=== PATIENT | female | born 1980 | race Caucasian/White ===

== ENCOUNTER 2016-12-21 11:31 | Outpatient (CLI) | payer SELFPAY ==
--- NOTE | 2016-12-21 12:16 | Non Stress Test Report ---
Non Stress Test Datetime Report Generated by CPN: 12/21/2016 12:15 DEMOGRAPHIC EGA NST: 38.5 INDICATION Indication for Study: Ordered by Provider MONITORING Monitor Explained: Monitor Explained; Test Explained; Patient Verbalized Understanding Time on Monitor: 12/21/2016 11:50 Time off Monitor: 12/21/2016 12:13 NST Duration: 23 NST INTERVENTIONS NST Interventions: PO Hydration; Reposition Patient Physician Notified NST: Dr. Barber BABY A: [id number] BABY A Movement : Present Contraction Frequency : non FHR Baseline : 145 Accelerations : 15X15 Decelerations : None Variability : Moderate 6-25bpm NST Review: Meets Criteria for Reactive NST NST Review and Verified By : KATIE Pepper Results: Reactive NST REPORT Report Trigger: Send Report
== END 2016-12-21 12:20 | disposition home or self-care (01) ==
LOC: LC 11:31
PROVIDERS: ATTEND Obstetrics & Gynecology
PROC: 4A1HXCZ Monitoring of Products of Conception, Cardiac Rate, External Approach (ICD-10-PCS; principal; 2016-12-21)
DX: O09.523 Supervision of elderly multigravida, third trimester (principal); Z3A.38 38 weeks gestation of pregnancy
CPT/HCPCS: 59025

== ENCOUNTER 2017-01-01 20:13 | Inpatient (IN) | payer OTHER ==
[2017-01-01] MEDS ORDERED: RINGERS SOLUTION,LACTATED 300 ML IV ONE (20:19)
[2017-01-01] MEDS ORDERED: OXYTOCIN/NORMAL SALINE 20 UNIT/1,000 ML RTUINJ IV PRN (20:19)
[2017-01-01] MEDS ORDERED: ACETAMINOPHEN 325 MG TABLET PO PRN (20:19)
[2017-01-01] MEDS ORDERED: DINOPROSTONE 10 MG VAGINAL INSERT.SR PV ONE (20:19)
[2017-01-01 21:01] LABS: ABSOLUTE EOSINOPHILS # (AUTO) 0.1 10^3/uL (0.0-0.6); ABSOLUTE LYMPHOCYTES (AUTO) 2.8 10^3/uL (0.5-4.7); ABSOLUTE NEUT (AUTO) 9.4 10^3/uL (1.7-8.2); BASOPHILS % (AUTO) 0.1 % (0-2); EOSINOPHILS % (AUTO) 0.8 % (0-6); HEMATOCRIT 37.1 % (36.0-47.0); HEMOGLOBIN 12.4 g/dL (12.0-15.5); HGB HCT DIFFERENCE 0.1; LYMPHOCYTES % (AUTO) 21.3 % (13-45); MEAN CORPUSCULAR HEMOGLOBIN 27.9 pg (27.0-33.4); MEAN CORPUSCULAR HGB CONC 33.4 g/dL (32.0-36.0); MEAN CORPUSCULAR VOLUME 84 fl (80-97); MONOCYTES % (AUTO) 7.3 % (3-13); RED BLOOD COUNT 4.44 10^6/uL (3.72-5.28); RED CELL DISTRIBUTION WIDTH 14.2 % (11.5-14.0); SEGMENTED NEUTROPHILS % (AUTO) 70.5 % (42-78); WHITE BLOOD COUNT 13.3 10^3/uL (4.0-10.5)
[2017-01-01 21:01] LABS: APPEARANCE,URINE CLEAR; BILIRUBIN,URINE NEGATIVE (NEGATIVE); GLUCOSE, URINE NEGATIVE (NEGATIVE); KETONES,URINE NEGATIVE (NEGATIVE); LEUKOCYTE ESTERASE,URINE NEGATIVE (NEGATIVE); NITRITE,URINE NEGATIVE (NEGATIVE); PROTEIN,URINE NEGATIVE (NEGATIVE); URINE SPECIFIC GRAVITY 1.002; UROBILINOGEN,URINE NEGATIVE mg/dL (<2.0)
[2017-01-01] MEDS ORDERED: DINOPROSTONE 10 MG VAGINAL INSERT.SR ONE (21:17)
[2017-01-01] MEDS ORDERED: ZOLPIDEM TARTRATE 5 MG TABLET ONE (21:18)
[2017-01-01 21:20] LABS: URINE BARBITURATES SCREEN NEGATIVE; URINE METHADONE SCREEN NEGATIVE; URINE OPIATES LOW NEGATIVE; URINE PHENCYCLIDINE SCREEN NEGATIVE
[2017-01-01] MEDS: ZOLPIDEM TARTRATE 5 MG TABLET PO PRN (21:28)
[2017-01-01] MEDS: RINGERS SOLUTION,LACTATED 1,000 ML IV PRN (21:29)
[2017-01-01] MEDS ORDERED: MAG HYDROX/AL HYDROX/SIMETH SUSP 30 ML UDCUP ONE (22:38)
[2017-01-01] MEDS ORDERED: MAG HYDROX/AL HYDROX/SIMETH SUSP 30 ML UDCUP PO ONE (22:41)
[2017-01-01] MEDS: MAG HYDROX/AL HYDROX/SIMETH SUSP 30 ML UDCUP PO PRN (22:44)
[2017-01-02] MEDS: RINGERS SOLUTION,LACTATED 1,000 ML IV PRN (04:22)
--- NOTE | 2017-01-02 10:46 | L&D Progress Notes ---
PROGRESS NOTES Datetime Report Generated by CPN: 01/02/2017 10:46 PROGRESS NOTE Impression: Reassuring Heart Rate Procedures: Sterile Vag Exam Plan: Induction Plan Other: start pit Informed Consent Obtained: Vaginal Delivery Vital Signs : Reviewed Comment: SVE, as above Pitocin VAGINAL EXAM Dilatation: 1 Effacement: 60 Station: -3 MEMBRANES Pooling: Negative Membranes: Intact FETUS A FHR - Baseline: 150 Variability: Moderate 6-25bpm Accelerations: 15X15 Decelerations: None FHR Category: Category I : 40.3 Estimated Weight (gm): 3500 Presentation: Vertex SIGNATURE SIGNATURE: [id number];[id number] SIGNATURE: [id number] Assignment: Hailey Rubin MD Signature: with User ID: [email or web address] : with User ID: Maria Del Rosario
[2017-01-02] MEDS ORDERED: OXYTOCIN/NORMAL SALINE 20 UNIT/1,000 ML RTUINJ ONE (10:59)
[2017-01-02] MEDS ORDERED: MAG HYDROX/AL HYDROX/SIMETH SUSP 30 ML UDCUP ONE ×2 (13:55→21:33)
[2017-01-02] MEDS: MAG HYDROX/AL HYDROX/SIMETH SUSP 30 ML UDCUP PO PRN (13:56)
--- NOTE | 2017-01-02 16:44 | L&D Progress Notes ---
PROGRESS NOTES Datetime Report Generated by CPN: 01/02/2017 16:43 PROGRESS NOTE Impression: Reassuring Heart Rate Procedures: Sterile Vag Exam Plan: Cervical Ripening Vital Signs : Reviewed Comment: Discussed with pt plan of care Will shut off pitocin for the night pt may eat dinner, shower Cervidil over night Plan for restart pitocin in am VAGINAL EXAM Dilatation: 1 Effacement: 60 Station: -3 Contractions: 2-5 MEMBRANES Membranes: Intact FETUS A FHR - Baseline: 155 Monitoring: External US Variability: Moderate 6-25bpm Decelerations: None FHR Category: Category I FETUS C SIGNATURE: [id number];[id number] Assignment: Hailey Rubin MD Signature: with User ID: [email or web address] : with User ID: [email or web address]
[2017-01-02] MEDS ORDERED: DINOPROSTONE 10 MG VAGINAL INSERT.SR PV ONE (19:09)
[2017-01-02] MEDS ORDERED: DINOPROSTONE 10 MG VAGINAL INSERT.SR ONE (19:51)
[2017-01-02] MEDS ORDERED: ZOLPIDEM TARTRATE 5 MG TABLET ONE (21:29)
[2017-01-02] MEDS ORDERED: MAG HYDROX/AL HYDROX/SIMETH SUSP 30 ML UDCUP PO ONE (21:34)
[2017-01-02] MEDS: ZOLPIDEM TARTRATE 5 MG TABLET PO PRN (21:42)
[2017-01-03] MEDS ORDERED: MAG HYDROX/AL HYDROX/SIMETH SUSP 30 ML UDCUP ONE (07:15)
[2017-01-03] MEDS ORDERED: ACETAMINOPHEN 325 MG TABLET ONE (08:37)
--- NOTE | 2017-01-03 11:45 | L&D Progress Notes ---
PROGRESS NOTES Datetime Report Generated by CPN: 01/03/2017 11:45 PROGRESS NOTE Impression: Reassuring Heart Rate Plan: Continue Present Management; Induction Informed Consent Obtained: Vaginal Delivery Vital Signs : Reviewed; Within Normal Limits Comment: Ireg uc's, Cat 1 strip, does not want a epidural, will arom when vtx descends FETUS A Decelerations: None FETUS C SIGNATURE: [id number];[id number] Assignment: Chapin Ang DO Signature: with User ID: [email or web address] : with User ID: [email or web address]
--- NOTE | 2017-01-03 13:24 | L&D Progress Notes ---
PROGRESS NOTES Datetime Report Generated by CPN: 01/03/2017 13:24 PROGRESS NOTE Comment: walking in halls, feeling uc's but not painful. Irreg uc's, Cat 1 strip FETUS C SIGNATURE: [id number];10,[id number] Assignment: Chapin Ang DO Signature: with User ID: [email or web address] : with User ID: [email or web address]
--- NOTE | 2017-01-03 14:57 | L&D Progress Notes ---
PROGRESS NOTES Datetime Report Generated by CPN: 01/03/2017 14:57 PROGRESS NOTE Impression: Reassuring Heart Rate Procedures: Sterile Vag Exam Plan: Induction Vital Signs : Reviewed; Within Normal Limits Comment: VE 1/soft/vtx by sono, out of pelvis, discussed options with pt and FOB, re: going home and coming back in labor or next Brad, increase risk of C/S since no change in cervix and descent. DW Dr. Ang, pt would like to continue with Pitocin today and possible cytotec tonight FETUS A Monitoring: External US Variability: Moderate 6-25bpm FETUS C SIGNATURE: [id number];[id number] Assignment: Chapin Ang DO Signature: with User ID: [email or web address] : with User ID: [email or web address]
--- NOTE | 2017-01-10 09:43 | Admission Physical ---
Datetime Report Generated by CPN: 01/10/2017 09:43 CURRENT ADMISSION Chief Complaint: Scheduled Induction of Labor Indication for Induction: Post Dates Indication for Induction: Term, Intrauterine ; Induction of Labor Admit Plan: Admit to Unit; Initiate Labor Induction Protocol ALLERGIES Medication Allergies: Yes Medication Allergies: amoxicillin (01/01/2017) Medication Allergies: No Known Allergies (12/21/2016) Medication Allergies: amoxicillin Medication Allergies: No Known Allergies (01/29/2014) Latex: No Latex Allergies Food Allergies: None known OBSTETRICAL HISTORY : 2 Para: 1 SAB: 0 IAB: 0 Ectopic: 0 Livin Cesareans: 0 VBACs: 0 Multiple Births: 0 Gestational Diabetes: No Rh Sensitization: No Incompetent Cervix: No CLARE: No Infertility: No ART Treatment: No Uterine Anomaly: No IUGR: No Hx Previous C/S: No Macrosomia: No Hx Loss/Stillborn: No PIH: No Hx : No Placenta Previa/Abruption: No Depression/PP Depression: Yes PTL/PROM: No Post Hemorrhage: No Current Procedures: Ultrasound; NST Obstetrical History Comments: G1-41 vaginal boy 8lbs 13oz G2-current SEE RECORDS Alcohol: No Marijuana : No Cocaine: No Other Illicit Drugs: No Cigarettes: Former Smoker. 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 Surgery: No Heart Disease: No Hosp/Surgery: Yes Autoimmune Disorder: No Anesthetic Complications: No Kidney Disease: No Abnormal Pap Smear: Yes Neuro/Epilepsy: No Psychiatric Disorders: No Other Medical Diseases: No Hepatitis/Liver Disease: No Significant Family History: No Varicosities/Phlebitis: No Trauma/Violence : No Thyroid Dysfunction: No Medical History Comments: ankle sx 2009 INFECTIOUS HISTORY Gonorrhea: No Genital Herpes: No Chlamydia: No Tuberculosis: No Syphilis: No Hepatitis: No HIV/AIDS Exposure: No Rash or Viral Illness: No HPV: Yes PHYSICAL EXAM General: Normal HEENT: Normal Neurologic: Normal Thyroid: Normal Heart: Normal Lungs: Normal Breast: Normal Back: Normal Abdomen: Normal Genitourinary Exam: Normal Extremities: Normal DTRs: Normal Pelvic Type: Adequate Vital Signs: Reviewed VAGINAL EXAM Dilatation: 1 MEMBRANES Pooling: Negative Membranes: Intact FETUS A FHR- Baseline: 130 Variability: Moderate 6-25bpm Accelerations: 15X15 Decelerations: None FHR Category: Category I Estimated Weight (gm): 3500 Presentation: Vertex PLANS FOR LABOR AND DELIVERY Labor and Delivery: None Pain Management: Natural Feeding Preference: Breast Benefit of Breast Feed Discussed: Yes Circumcision: No
== END 2017-01-03 15:40 | disposition home or self-care (01) | DRG 782 ==
LOC: LR 20:13
PROVIDERS: ADMIT Obstetrics & Gynecology; ATTEND Obstetrics & Gynecology
DX: O48.0 Post-term pregnancy (principal); O36.0930 Maternal care for other rhesus isoimmunization, third trimester, not applicable or unspecified; O61.0 Failed medical induction of labor; O99.213 Obesity complicating pregnancy, third trimester; E66.9 Obesity, unspecified; O09.523 Supervision of elderly multigravida, third trimester; Z3A.40 40 weeks gestation of pregnancy; Z68.30 Body mass index [BMI] 30.0-30.9, adult
CPT/HCPCS: 36415; 80307; 81005; 85025; 86592; 86850; 86900; 86901; J2590; J3490

== ENCOUNTER 2017-01-07 18:01 | Inpatient (IN) | payer OTHER ==
[2017-01-07] MEDS ORDERED: RINGERS SOLUTION,LACTATED 1,000 ML IV PRN (18:25)
[2017-01-07] MEDS ORDERED: RINGERS SOLUTION,LACTATED 300 ML IV ONE (18:25)
[2017-01-07 19:17] LABS: APPEARANCE,URINE SLIGHTLY-CLOUDY; BILIRUBIN,URINE NEGATIVE (NEGATIVE); GLUCOSE, URINE NEGATIVE (NEGATIVE); KETONES,URINE NEGATIVE (NEGATIVE); LEUKOCYTE ESTERASE,URINE TRACE (NEGATIVE); NITRITE,URINE NEGATIVE (NEGATIVE); PROTEIN,URINE NEGATIVE (NEGATIVE); URINE SPECIFIC GRAVITY 1.011; UROBILINOGEN,URINE NEGATIVE mg/dL (<2.0)
[2017-01-07] MEDS ORDERED: MISOPROSTOL 0.1 MG TABLET PO ONE (19:23)
[2017-01-07] MEDS ORDERED: MISOPROSTOL 0.1 MG TABLET PV ONE (19:25)
[2017-01-07 19:28] LABS: ABSOLUTE EOSINOPHILS # (AUTO) 0.1 10^3/uL (0.0-0.6); ABSOLUTE LYMPHOCYTES (AUTO) 2.6 10^3/uL (0.5-4.7); ABSOLUTE MONOCYTES (AUTO) 0.8 10^3/uL (0.1-1.4); ABSOLUTE NEUT (AUTO) 8.2 10^3/uL (1.7-8.2); BASOPHILS % (AUTO) 0.2 % (0-2); EOSINOPHILS % (AUTO) 0.9 % (0-6); HEMATOCRIT 38.6 % (36.0-47.0); HEMOGLOBIN 12.9 g/dL (12.0-15.5); HGB HCT DIFFERENCE 0.1; LYMPHOCYTES % (AUTO) 22.5 % (13-45); MEAN CORPUSCULAR HGB CONC 33.4 g/dL (32.0-36.0); MEAN CORPUSCULAR VOLUME 84 fl (80-97); MONOCYTES % (AUTO) 6.5 % (3-13); RED CELL DISTRIBUTION WIDTH 14.4 % (11.5-14.0); SEGMENTED NEUTROPHILS % (AUTO) 69.9 % (42-78); WHITE BLOOD COUNT 11.8 10^3/uL (4.0-10.5)
[2017-01-07 19:47] LABS: URINE BARBITURATES SCREEN NEGATIVE; URINE METHADONE SCREEN NEGATIVE; URINE OPIATES LOW NEGATIVE; URINE PHENCYCLIDINE SCREEN NEGATIVE
[2017-01-07] MEDS ORDERED: MISOPROSTOL 0.1 MG TABLET ONE (19:50)
[2017-01-07] MEDS ORDERED: ZOLPIDEM TARTRATE 5 MG TABLET PO ONE (21:30)
[2017-01-07] MEDS ORDERED: ZOLPIDEM TARTRATE 5 MG TABLET ONE (21:54)
[2017-01-08] MEDS ORDERED: MISOPROSTOL 0.1 MG TABLET ONE ×2 (00:37→04:37)
[2017-01-08] MEDS ORDERED: MISOPROSTOL 0.1 MG TABLET PV SCH (00:45)
[2017-01-08] MEDS ORDERED: OXYTOCIN/NORMAL SALINE 20 UNIT/1,000 ML RTUINJ ONE ×2 (09:35→11:11)
--- NOTE | 2017-01-08 09:48 | L&D Progress Notes ---
PROGRESS NOTES Datetime Report Generated by CPN: 01/08/2017 09:48 PROGRESS NOTE Impression: Reassuring Heart Rate Plan: Continue Present Management; Induction Vital Signs : Reviewed; Within Normal Limits Comment: Pt asking for butcher bulb, feeling uc's, irreg uc's, cat [address] Rubin coming in to assess for butcher bulb VAGINAL EXAM Dilatation: 1 Effacement: 0 Station: -3 MEMBRANES Pooling: Negative Membranes: Intact FETUS A Monitoring: External US : 41.1 Estimated Weight (gm): 3500 Presentation: Vertex SIGNATURE SIGNATURE: [id number];[id number] Assignment: Hailey Rubin MD Signature: with User ID: [email or web address] : with User ID: [email or web address]
[2017-01-08] MEDS ORDERED: ONDANSETRON HCL INJ/PF 4 MG/2 ML SDV IV ONE (10:28)
[2017-01-08] MEDS ORDERED: ONDANSETRON HCL INJ/PF 4 MG/2 ML SDV ONE (10:29)
[2017-01-08] MEDS ORDERED: LIDOCAINE 1% INJ-PF (10 MG/ML) 30 ML SDV ONE (11:11)
[2017-01-08] MEDS ORDERED: MISOPROSTOL 0.2 MG TABLET ONE (11:11)
[2017-01-08] MEDS ORDERED: EPHEDRINE SULFATE INJ 50 MG/1 ML AMPULE ONE (11:11)
[2017-01-08] MEDS ORDERED: FENTANYL/BUPIVACAINE/NS/PF 200 MCG/100 ML RTUINJ EPI ONE (11:11)
[2017-01-08] MEDS ORDERED: BUPIVACAINE HCL 0.25 % INJ/PF (2.5 MG/1 ML) 30 ML VIAL ONE (11:12)
--- NOTE | 2017-01-08 12:04 | L&D Progress Notes ---
PROGRESS NOTES Datetime Report Generated by CPN: 01/08/2017 12:03 PROGRESS NOTE Procedures: Sterile Vag Exam Plan: Induction Informed Consent Obtained: Vaginal Delivery Vital Signs : Reviewed Comment: Received epidural, feeling a little better, VE 6/100/0, + show, uc's q 2-3 x 60 sec.Cat 1 strip anticipate FETUS A FHR - Baseline: 140 Monitoring: External US Decelerations: Early FETUS C SIGNATURE: [id number];[id number] Assignment: Hailey Rubin MD Signature: with User ID: [email or web address] : with User ID: [email or web address]
--- NOTE | 2017-01-08 12:21 | L&D Progress Notes ---
PROGRESS NOTES Datetime Report Generated by CPN: 01/08/2017 12:21 PROGRESS NOTE Comment: VE 8/100/vtx/0. FSE applied, Cat 1 strip FETUS C SIGNATURE: [id number];[id number] Assignment: Hailey Rubin MD Signature: with User ID: [email or web address] : with User ID: [email or web address]
[2017-01-08] MEDS ORDERED: PSEUDOEPHEDRINE HCL 30 MG TABLET PO PRN (13:37)
[2017-01-08] MEDS ORDERED: ACETAMINOPHEN 650 MG SUPP.RECT PR PRN (13:37)
[2017-01-08] MEDS ORDERED: OXYTOCIN/NORMAL SALINE 20 UNIT/1,000 ML RTUINJ IV PRN (13:37)
[2017-01-08] MEDS ORDERED: PROMETHAZINE HCL INJ 25 MG/1 ML VIAL IV PRN (13:37)
[2017-01-08] MEDS ORDERED: PROMETHAZINE HCL 25 MG SUPP.RECT PR PRN (13:37)
[2017-01-08] MEDS ORDERED: MAGNESIUM HYDROXIDE SUSP 30 ML UDCUP PO PRN (13:37)
[2017-01-08] MEDS ORDERED: DIPH/PERTUSS(ACELL)/TETANUS VAC/PF 0.5 ML SYR (>=10YO) IM PRN (13:37)
[2017-01-08] MEDS ORDERED: DIPHENHYDRAMINE HCL 25 MG CAPSULE PO PRN (13:37)
[2017-01-08] MEDS ORDERED: MEASLES,MUMPS&RUBELLA VACC/PF 0.5 ML VIAL SUBCUT PRN (13:37)
[2017-01-08] MEDS ORDERED: ZOLPIDEM TARTRATE 5 MG TABLET PO PRN (13:37)
[2017-01-08] MEDS ORDERED: MISOPROSTOL 0.2 MG TABLET PR PRN (13:37)
[2017-01-08] MEDS ORDERED: ACETAMINOPHEN WITH CODEINE #3 TABLET PO PRN (13:37)
[2017-01-08] MEDS ORDERED: GLYCERIN/WITCH HAZEL LEAF 1 EACH MED..PAD TP PRN (13:37)
[2017-01-08] MEDS ORDERED: BENZOCAINE/MENTHOL AEROSOL SPRAY 56 ML TOP PRN (13:37)
[2017-01-08] MEDS ORDERED: NA PHOS,M-B/NA PHOS,DI-BA (ADULT) 133 ML ENEMA PR PRN (13:37)
[2017-01-08] MEDS ORDERED: PROMETHAZINE HCL 25 MG TABLET PO PRN (13:37)
[2017-01-08] MEDS ORDERED: DIBUCAINE 1% OINTMENT 28 GM TP PRN (13:37)
[2017-01-08] MEDS ORDERED: IBUPROFEN 800 MG TABLET ONE (14:24)
[2017-01-08] MEDS: IBUPROFEN 800 MG TABLET PO SCH ×2 (14:24→21:10)
--- NOTE | 2017-01-08 14:53 | Delivery Summary ---
Del Sum A-C Datetime Report Generated by CPN: 01/08/2017 14:53 DELIVERY PERSONNEL DELIVERY PERSONNEL: [id number] Delivery Doctor:: Helga Jennings CNM Labor and Delivery Nurse:: Denae Soria RNtax accounting assistant Nurse:: Brooklyn Thomas RN Nursery Nurse:: Mohan Kelley RN Student Observers:: Faisal Greenfield/KENJI: Rina Sousa CST Additional Personnel: : Sanjay Wyatt MATERNAL INFORMATION Delivery Anesthesia: Epidural Medications After Delivery: Pitocin Bolus-Please Comment; Pitocin Drip 20 Units/1000ml NSS Meds After Delivery Comment: Pitocin bolusing per order Estimated Blood Loss (ml): 300 Maternal Complications: Other Other Maternal Complications: AMA Provider Comments: viable male from OA to CHANTE over intact perineum, several superficial periurethral lac, did not need suturing, spont delivery of grossly meconium stained placenta, 3 vc, ebl = 300 cc, FFFM, Pitocin IV, massage, cytotec 600mcg via rectum Baby and mom remains in recovery in stable condition, cord double clamped and cut by [facility] Nursery in attendance for delivery LABOR SUMMARY EDC: 12/30/2016 00:00 No. Babies in Womb: 1 Attempted: No Labor Anesthesia: Epidural LABOR INFORMATION Reason for Induction: Post Dates; Other Reason for Induction- Other: AMA Onset of Labor: 01/08/2017 11:58 Complete Dilatation: 01/08/2017 12:59 Cervical Ripening Agents: Cytotec @ Other Ripening Agents: Cervidil removed by pt. Oxytocin: Induction Group B Beta Strep: negative Antibiotics # of Doses: 0 Steroids Given: None Reason Steroids Not Administered: Not Applicable MEMBRANES Membranes Rupture Method: Artificial Rupture of Membranes: 01/08/2017 10:42 Length of Rupture (hr): 2.50 Amniotic Fluid Color: Heavy Meconium Amniotic Fluid Amount: Scant Amniotic Fluid Odor: None STAGES OF LABOR Stage 1 hr: 1 Stage 1 min: 1 Stage 2 hr: 0 Stage 2 min: 13 Stage 3 hr: 0 Stage 3 min: 11 Total Time in Labor hr: 1 Total Time in Labor min: 25 VAGINAL DELIVERY Episiotomy: None Laceration #1: None Laceration Extension #1: N/A Laceration Repair: Not Applicable Sponge Count Correct: N/A Sharps Count Correct: N/A CSECTION DELIVERY Primary Indication: N/A Secondary Indication: N/A CSection Incidence: N/A Labor: N/A Elective: N/A CSection Incision: N/A BABY A INFORMATION Delivery Date/Time: 01/08/2017 13:12 Method of Delivery: Vaginal Born in Route : No : N/A Forceps: N/A Vacuum Extraction: N/A Shoulder Dystocia : No PRESENTATION/POSITION BABY A Presentation: Cephalic Cephalic Presentation: Vertex Vertex Position: Right Occipital Anterior Breech Presentation: N/A PLACENTA INFORMATION BABY A Placenta Delivery Time : 01/08/2017 13:23 Placenta Method of Delivery: Spontaneous Placenta Status: Delivered SCORES BABY A Heart Rate 1 min: >100 bpm Resp Effort 1 min: Good Cry Reflex Irritability 1 min: Cough or Sneeze or Pulls Away Muscle Tone 1 min: Active Motion Color 1 min: Body [place], Extremities Blue Resuscitation Effort 1 min: Tactile Stimulation SCORE 1 MIN: 9 Heart Rate 5 min: >100 bpm Resp Effort 5 min: Good Cry Reflex Irritability 5 min: Cough or Sneeze or Pulls Away Muscle Tone 5 min: Active Motion Color 5 min: Body [place], Extremities Blue Resuscitation Effort 5 min: Tactile Stimulation SCORE 5 MIN: 9 INFORMATION BABY A Gestational Age at Delivery: 41.2 Gestational Status: Late Term- 41- 41.6 Weeks Outcome : Liveborn Condition : Stable Sex: Male IDENTIFICATION BABY A Verification Date/Time: 01/08/2017 13:23 ID Band Number: [id number] Mother's Name Verified: Yes RN Verifying Infant: Joe Barber, RN. RLindsey Morel, RN WEIGHT/LENGTH BABY A Infant Birthweight (gm): 4220 Weight (lb): 9 Weight (oz): 5 Length (in): 21.00 Length (cm): 53.34 CORD INFORMATION BABY A No. Cord Vessels: 3 Nuchal Cord : N/A Cord Blood Taken: Yes-For Eval (Mom's Blood Type - or O+) Suction: Mouth ASSESSMENT BABY A Complications: Meconium Skin to Skin: Yes Skin to Skin Time (min): 60 BABY B INFORMATION : N/A
--- NOTE | 2017-01-08 15:43 | Admission Physical ---
Datetime Report Generated by CPN: 01/08/2017 15:43 CURRENT ADMISSION Chief Complaint: Scheduled Induction of Labor Chief Complaint: Scheduled Induction of Labor Indication for Induction: Post Dates Indication for Induction: Post Dates Indication for Induction: Term, Intrauterine Indication for Induction: Term, Intrauterine ; Induction of Labor Admit Plan: Admit to Unit; Initiate Labor Induction Protocol Admit Plan: Admit to Unit; Initiate Labor Induction Protocol ALLERGIES Medication Allergies: Yes Medication Allergies: amoxicillin (01/01/2017) Medication Allergies: No Known Allergies (12/21/2016) Medication Allergies: amoxicillin Medication Allergies: No Known Allergies (01/29/2014) Latex: No Latex Allergies Food Allergies: None known OBSTETRICAL HISTORY EDC: 12/30/2016 00:00 : 2 Para: 1 Term: 1 : 0 SAB: 0 IAB: 0 Ectopic: 0 Livin Cesareans: 0 VBACs: 0 Multiple Births: 0 Gestational Diabetes: No Rh Sensitization: No Incompetent Cervix: No CLARE: No Infertility: No ART Treatment: No Uterine Anomaly: No IUGR: No Hx Previous C/S: No Macrosomia: No Hx Loss/Stillborn: No PIH: No Hx : No Placenta Previa/Abruption: No Depression/PP Depression: Yes PTL/PROM: No Post Hemorrhage: No Current Procedures: Ultrasound; NST Obstetrical History Comments: G1-41 vaginal boy 8lbs 13oz G2-current SEE RECORDS Alcohol: No Marijuana : No Cocaine: No Other Illicit Drugs: No Cigarettes: Former Smoker. 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 Surgery: No Heart Disease: No Hosp/Surgery: Yes Autoimmune Disorder: No Anesthetic Complications: No Kidney Disease: No Abnormal Pap Smear: Yes Neuro/Epilepsy: No Psychiatric Disorders: No Other Medical Diseases: No Hepatitis/Liver Disease: No Significant Family History: No Varicosities/Phlebitis: No Trauma/Violence : No Thyroid Dysfunction: No Medical History Comments: ankle sx 2009 INFECTIOUS HISTORY Gonorrhea: No Genital Herpes: No Chlamydia: No Tuberculosis: No Syphilis: No Hepatitis: No HIV/AIDS Exposure: No Rash or Viral Illness: No HPV: Yes PHYSICAL EXAM General: Normal General: Normal HEENT: Normal HEENT: Normal Neurologic: Normal Neurologic: Normal Thyroid: Normal Thyroid: Normal Heart: Normal Heart: Normal Lungs: Normal Lungs: Normal Breast: Normal Breast: Normal Back: Normal Back: Normal Abdomen: Normal Abdomen: Normal Genitourinary Exam: Normal Genitourinary Exam: Normal Extremities: Normal Extremities: Normal DTRs: Normal DTRs: Normal Pelvic Type: Adequate Pelvic Type: Adequate Vital Signs: Reviewed Vital Signs: Reviewed VAGINAL EXAM Dilatation: 1 Dilatation: 1 Dilatation: 1 Effacement: 0 Effacement: 60 Effacement: 60 Station: -3 Station: -3 Station: -3 Contraction Comments: 2-5 MEMBRANES Pooling: Negative Pooling: Negative Membranes: Intact Membranes: Intact Membranes: Intact FETUS A EGA: 41.1 EGA: 40.3 Monitoring: External US Monitoring: External US FHR- Baseline: 140 FHR- Baseline: 130 Variability: Moderate 6-25bpm Variability: Moderate 6-25bpm Accelerations: 15X15 Accelerations: 15X15 Decelerations: None Decelerations: None FHR Category: Category I FHR Category: Category I Estimated Weight (gm): 3500 Estimated Weight (gm): 3500 Presentation: Vertex Presentation: Vertex PLANS FOR LABOR AND DELIVERY Labor and Delivery: None Pain Management: Natural Feeding Preference: Breast Benefit of Breast Feed Discussed: Yes Circumcision: No INFORMED CONSENT Informed Consent Obtained: Vaginal Delivery Informed Consent Obtained: Vaginal Delivery Informed Consent Obtained: Vaginal Delivery Signature: with User ID: [email or web address] Signature: with User ID: [email or web address] : with User ID: [email or web address]
[2017-01-08] MEDS: DOCUSATE SODIUM 100 MG CAPSULE PO SCH (18:03)
[2017-01-08] MEDS: FERROUS SULFATE 325 MG TABLET PO SCH (18:03)
[2017-01-08] MEDS: ACETAMINOPHEN WITH CODEINE #3 TABLET PO PRN ×2 (18:17→22:20)
[2017-01-08] MEDS: FAMOTIDINE 20 MG TABLET PO SCH (21:10)
[2017-01-08] MEDS ORDERED: ONDANSETRON HCL 8 MG TABLET PO PRN (21:22)
[2017-01-08] MEDS ORDERED: OXYCODONE-ACETAMINOPHEN 5-325 MG TABLET PO PRN (23:25)
[2017-01-09] MEDS: OXYCODONE-ACETAMINOPHEN 5-325 MG TABLET PO PRN ×5 (02:23→20:12)
[2017-01-09] MEDS: IBUPROFEN 800 MG TABLET PO SCH ×3 (05:11→21:53)
[2017-01-09 07:39] LABS: HEMATOCRIT 35.6 % (36.0-47.0); HGB HCT DIFFERENCE 0.4; MEAN CORPUSCULAR HEMOGLOBIN 28.2 pg (27.0-33.4); MEAN CORPUSCULAR HGB CONC 33.7 g/dL (32.0-36.0); MEAN CORPUSCULAR VOLUME 84 fl (80-97); RED BLOOD COUNT 4.25 10^6/uL (3.72-5.28); RED CELL DISTRIBUTION WIDTH 14.8 % (11.5-14.0); WHITE BLOOD COUNT 17.1 10^3/uL (4.0-10.5)
--- NOTE | 2017-01-09 10:54 | PDOC PROGRESS REPORT ---
Subjective-OB Subjective: Post Delivery Day: 36 year old. Denies any needs at this time intact perinuem sitting up well reports cramping with contractions adapting well anticipate d/c in AM. Physical Exam (OB) Vital Signs: Temp Pulse Resp BP Pulse Ox 97.7 F 83 20 124/56 L 96 01/09/17 04:16 01/09/17 04:16 01/09/17 04:16 01/09/17 04:16 01/09/17 04:16 Intake & Output 01/08/17 01/09/17 01/10/17 06:59 06:59 06:59 Weight 114.85 kg - Lochia Lochia Amount: Small 10-25 ml Lochia Color: Rubra/Red - Abdomen Description: Tender, Soft Hernia Present: No Fundal Description: Firm, Midline Fundal Height: u/u - u/2 Objective-Diagnostic Laboratory: 01/09/17 06:59 01/09/17 01/09/17 06:59 06:59 WBC 17.1 H RBC 4.25 Hgb 12.0 Hct 35.6 L MCV 84 MCH 28.2 MCHC 33.7 RDW 14.8 H Plt Count 313 Blood Type A NEGATIVE
[2017-01-09] MEDS: SENNOSIDES/DOCUSATE 8.6-50 MG 1 EACH TABLET PO SCH (11:15)
[2017-01-09] MEDS: FERROUS SULFATE 325 MG TABLET PO SCH ×2 (11:15→18:21)
[2017-01-09] MEDS: DOCUSATE SODIUM 100 MG CAPSULE PO SCH ×2 (11:15→18:20)
[2017-01-09] MEDS: PRENATAL VITAMIN W-O CA NO5/FE FUMARATE/FA CAPSULE PO SCH (11:15)
[2017-01-09] MEDS: FAMOTIDINE 20 MG TABLET PO SCH ×2 (11:15→21:53)
[2017-01-10] MEDS: OXYCODONE-ACETAMINOPHEN 5-325 MG TABLET PO PRN ×3 (00:06→08:52)
[2017-01-10] MEDS: IBUPROFEN 800 MG TABLET PO SCH (06:27)
[2017-01-10 08:19] VITALS: BP 154/79
[2017-01-10] MEDS: FAMOTIDINE 20 MG TABLET PO SCH (09:04)
[2017-01-10] MEDS: DOCUSATE SODIUM 100 MG CAPSULE PO SCH (09:04)
[2017-01-10] MEDS: SENNOSIDES/DOCUSATE 8.6-50 MG 1 EACH TABLET PO SCH (09:04)
[2017-01-10] MEDS: PRENATAL VITAMIN W-O CA NO5/FE FUMARATE/FA CAPSULE PO SCH (09:04)
[2017-01-10] MEDS: FERROUS SULFATE 325 MG TABLET PO SCH (09:04)
--- NOTE | 2017-01-10 09:32 | Delivery Summary ---
Del Sum A-C Datetime Report Generated by CPN: 01/10/2017 09:32 DELIVERY PERSONNEL DELIVERY PERSONNEL: [id number] Delivery Doctor:: Helga Jennings CNM Labor and Delivery Nurse:: Denae Soria RNinstrumentation tech Nurse:: Brooklyn Thomas RN Nursery Nurse:: Mohan Kelley RN Student Observers:: Faisal Greenfield/KENJI: Rina Sousa CST Additional Personnel: : Sanjay Wyatt MATERNAL INFORMATION Delivery Anesthesia: Epidural Medications After Delivery: Pitocin Bolus-Please Comment; Pitocin Drip 20 Units/1000ml NSS Meds After Delivery Comment: Pitocin bolusing per order Estimated Blood Loss (ml): 300 Maternal Complications: Other Other Maternal Complications: AMA Provider Comments: viable male from OA to CHANTE over intact perineum, several superficial periurethral lac, did not need suturing, spont delivery of grossly meconium stained placenta, 3 vc, ebl = 300 cc, FFFM, Pitocin IV, massage, cytotec 600mcg via rectum Baby and mom remains in recovery in stable condition, cord double clamped and cut by [facility] Nursery in attendance for delivery LABOR SUMMARY EDC: 12/30/2016 00:00 No. Babies in Womb: 1 Attempted: No Labor Anesthesia: Epidural LABOR INFORMATION Reason for Induction: Post Dates; Other Reason for Induction- Other: AMA Onset of Labor: 01/08/2017 11:58 Complete Dilatation: 01/08/2017 12:59 Cervical Ripening Agents: Cytotec @ Cervical Ripening Agents: Cytotec @ 25mcg PV Cervical Ripening Agents: Cytotec @ 25/50 see notes Cervical Ripening Agents: Cervidil Cervical Ripening Agents: Cervidil (Annotations: Removed by pt in bathroom.) Cervical Ripening Agents: Cervidil Other Ripening Agents: Cervidil removed by pt. Oxytocin: Induction Group B Beta Strep: negative Antibiotics # of Doses: 0 Steroids Given: None Reason Steroids Not Administered: Not Applicable MEMBRANES Membranes Rupture Method: Artificial Rupture of Membranes: 01/08/2017 10:42 Length of Rupture (hr): 2.50 Amniotic Fluid Color: Heavy Meconium Amniotic Fluid Amount: Scant Amniotic Fluid Odor: None STAGES OF LABOR Stage 1 hr: 1 Stage 1 min: 1 Stage 2 hr: 0 Stage 2 min: 13 Stage 3 hr: 0 Stage 3 min: 11 Total Time in Labor hr: 1 Total Time in Labor min: 25 VAGINAL DELIVERY Episiotomy: None Laceration #1: None Laceration Extension #1: N/A Laceration Repair: Not Applicable Sponge Count Correct: N/A Sharps Count Correct: N/A CSECTION DELIVERY Primary Indication: N/A Secondary Indication: N/A CSection Incidence: N/A Labor: N/A Elective: N/A CSection Incision: N/A BABY A INFORMATION Infant Delivery Date/Time: 01/08/2017 13:12 Method of Delivery: Vaginal Born in Route : No : N/A Forceps: N/A Vacuum Extraction: N/A Shoulder Dystocia : No PRESENTATION/POSITION BABY A Presentation: Cephalic Presentation: Cephalic Presentation: Cephalic Cephalic Presentation: Vertex Vertex Position: Right Occipital Anterior Breech Presentation: N/A PLACENTA INFORMATION BABY A Placenta Delivery Time : 01/08/2017 13:23 Placenta Method of Delivery: Spontaneous Placenta Status: Delivered SCORES BABY A Heart Rate 1 min: >100 bpm Resp Effort 1 min: Good Cry Reflex Irritability 1 min: Cough or Sneeze or Pulls Away Muscle Tone 1 min: Active Motion Color 1 min: Body [place], Extremities Blue Resuscitation Effort 1 min: Tactile Stimulation SCORE 1 MIN: 9 Heart Rate 5 min: >100 bpm Resp Effort 5 min: Good Cry Reflex Irritability 5 min: Cough or Sneeze or Pulls Away Muscle Tone 5 min: Active Motion Color 5 min: Body [place], Extremities Blue Resuscitation Effort 5 min: Tactile Stimulation SCORE 5 MIN: 9 INFANT INFORMATION BABY A Gestational Age at Delivery: 41.2 Gestational Status: Late Term- 41- 41.6 Weeks Outcome : Liveborn Infant Condition : Stable Infant Sex: Male Sex: Male IDENTIFICATION BABY A Infant Verification Date/Time: 01/08/2017 13:23 ID Band Number: [id number] Mother's Name Verified: Yes Infant RN Verifying : Joe BarberRN. Neha RN WEIGHT/LENGTH BABY A Infant Birthweight (gm): 4220 Infant Weight (lb): 9 Infant Weight (oz): 5 Length (in): 21.00 Length (cm): 53.34 CORD INFORMATION BABY A No. Cord Vessels: 3 Nuchal Cord : N/A Cord Blood Taken: Yes-For Eval (Mom's Blood Type - or O+) Infant Suction: Mouth ASSESSMENT BABY A Infant Complications: Meconium Skin to Skin: Yes Skin to Skin: Yes Skin to Skin Time (min): 60 BABY B INFORMATION : N/A
--- NOTE | 2017-01-10 10:08 | PDOC DISCHARGE SUMMARY ---
Final Diagnosis Discharge Date: 01/10/17 - Final Diagnosis (1) Advanced maternal age (AMA) in Is this a current diagnosis for this admission?: Yes (2) Vaginal delivery Is this a current diagnosis for this admission?: Yes Discharge Data - Discharge Medication Home Medications: No122/Iron/Folic Acid [ Multi Tablet] 1 tab PO DAILY 12/21/16 Famotidine [Pepcid AC] 10 mg ONCE PRN MDD 1 tab 01/01/17 Reason(s) for Admission: Induction of Labor Procedures: Ultrasound Intrapartum Procedure(s): Spontaneous Vaginal Delivery - Diagnosis Test Laboratory: Temp Pulse Resp BP Pulse Ox 98.4 F 95 17 154/79 H 99 01/10/17 07:54 01/10/17 07:54 01/10/17 07:54 01/10/17 07:54 01/10/17 07:54 01/07/17 01/07/17 01/09/17 18:15 19:11 06:59 RBC 4.60 4.25 Hgb 12.9 12.0 Hct 38.6 35.6 L Urine Opiates Screen NEGATIVE - Discharge information/Instructions Discharge Activity: Activity As Tolerated Discharge Diet: Regular Disposition: HOME, SELF-CARE Follow up with: [facility] in: 4 - rhogam given follow up 4 weeks
--- NOTE | 2017-01-24 13:15 | Delivery Summary ---
Del Sum A-C Datetime Report Generated by CPN: 01/24/2017 13:14 DELIVERY PERSONNEL DELIVERY PERSONNEL: [id number] Delivery Doctor:: Helga Jennings CNM Labor and Delivery Nurse:: Denae Soria RNbudder Nurse:: Brooklyn Thomas RN Nursery Nurse:: Mohan Kelley RN Student Observers:: Faisal Greenfield/KENJI: Rina Sousa CST Additional Personnel: : Sanjay Wyatt MATERNAL INFORMATION Delivery Anesthesia: Epidural Medications After Delivery: Pitocin Bolus-Please Comment; Pitocin Drip 20 Units/1000ml NSS Meds After Delivery Comment: Pitocin bolusing per order Estimated Blood Loss (ml): 300 Maternal Complications: Other Other Maternal Complications: AMA Provider Comments: viable male from OA to CHANTE over intact perineum, several superficial periurethral lac, did not need suturing, spont delivery of grossly meconium stained placenta, 3 vc, ebl = 300 cc, FFFM, Pitocin IV, massage, cytotec 600mcg via rectum Baby and mom remains in recovery in stable condition, cord double clamped and [facility] in attendance for delivery LABOR SUMMARY EDC: 12/30/2016 00:00 No. Babies in Womb: 1 Attempted: No Labor Anesthesia: Epidural LABOR INFORMATION Reason for Induction: Post Dates; Other Reason for Induction- Other: AMA Onset of Labor: 01/08/2017 11:58 Complete Dilatation: 01/08/2017 12:59 Cervical Ripening Agents: Cytotec @ Cervical Ripening Agents: Cytotec @ 25mcg PV Cervical Ripening Agents: Cytotec @ 25/50 see notes Cervical Ripening Agents: Cervidil Cervical Ripening Agents: Cervidil (Annotations: Removed by pt in bathroom.) Cervical Ripening Agents: Cervidil Other Ripening Agents: Cervidil removed by pt. Oxytocin: Induction Group B Beta Strep: negative Antibiotics # of Doses: 0 Steroids Given: None Reason Steroids Not Administered: Not Applicable MEMBRANES Membranes Rupture Method: Artificial Rupture of Membranes: 01/08/2017 10:42 Length of Rupture (hr): 2.50 Amniotic Fluid Color: Heavy Meconium Amniotic Fluid Amount: Scant Amniotic Fluid Odor: None STAGES OF LABOR Stage 1 hr: 1 Stage 1 min: 1 Stage 2 hr: 0 Stage 2 min: 13 Stage 3 hr: 0 Stage 3 min: 11 Total Time in Labor hr: 1 Total Time in Labor min: 25 VAGINAL DELIVERY Episiotomy: None Laceration #1: None Laceration Extension #1: N/A Laceration Repair: Not Applicable Sponge Count Correct: N/A Sharps Count Correct: N/A CSECTION DELIVERY Primary Indication: N/A Secondary Indication: N/A CSection Incidence: N/A Labor: N/A Elective: N/A CSection Incision: N/A BABY A INFORMATION Infant Delivery Date/Time: 01/08/2017 13:12 Method of Delivery: Vaginal Born in Route : No : N/A Forceps: N/A Vacuum Extraction: N/A Shoulder Dystocia : No PRESENTATION/POSITION BABY A Presentation: Cephalic Presentation: Cephalic Presentation: Cephalic Cephalic Presentation: Vertex Vertex Position: Right Occipital Anterior Breech Presentation: N/A PLACENTA INFORMATION BABY A Placenta Delivery Time : 01/08/2017 13:23 Placenta Method of Delivery: Spontaneous Placenta Status: Delivered SCORES BABY A Heart Rate 1 min: >100 bpm Resp Effort 1 min: Good Cry Reflex Irritability 1 min: Cough or Sneeze or Pulls Away Muscle Tone 1 min: Active Motion Color 1 min: Body [place], Extremities Blue Resuscitation Effort 1 min: Tactile Stimulation SCORE 1 MIN: 9 Heart Rate 5 min: >100 bpm Resp Effort 5 min: Good Cry Reflex Irritability 5 min: Cough or Sneeze or Pulls Away Muscle Tone 5 min: Active Motion Color 5 min: Body [place], Extremities Blue Resuscitation Effort 5 min: Tactile Stimulation SCORE 5 MIN: 9 INFANT INFORMATION BABY A Gestational Age at Delivery: 41.2 Gestational Status: Late Term- 41- 41.6 Weeks Outcome : Liveborn Infant Condition : Stable Infant Sex: Male Sex: Male IDENTIFICATION BABY A Infant Verification Date/Time: 01/08/2017 13:23 ID Band Number: [id number] Mother's Name Verified: Yes Infant RN Verifying : Joe BarberRN. Neha RN WEIGHT/LENGTH BABY A Infant Birthweight (gm): 4220 Infant Weight (lb): 9 Infant Weight (oz): 5 Length (in): 21.00 Length (cm): 53.34 CORD INFORMATION BABY A No. Cord Vessels: 3 Nuchal Cord : N/A Cord Blood Taken: Yes-For Eval (Mom's Blood Type - or O+) Infant Suction: Mouth ASSESSMENT BABY A Infant Complications: Meconium Skin to Skin: Yes Skin to Skin: Yes Skin to Skin Time (min): 60 BABY B INFORMATION : N/A
== END 2017-01-10 11:48 | disposition home or self-care (01) | DRG 775 ==
LOC: LR 18:01 → 2S 01-08 15:32
PROVIDERS: ADMIT Obstetrics & Gynecology; ATTEND Obstetrics & Gynecology
PROC: 10E0XZZ Delivery of Products of Conception, External Approach (ICD-10-PCS; principal; 2017-01-08)
PROC: 4A1HXCZ Monitoring of Products of Conception, Cardiac Rate, External Approach (ICD-10-PCS; 2017-01-08)
PROC: 3E0234Z Introduction of Serum, Toxoid and Vaccine into Muscle, Percutaneous Approach (ICD-10-PCS; 2017-01-08)
DX: O48.0 Post-term pregnancy (principal); O26.893 Other specified pregnancy related conditions, third trimester; O99.334 Smoking (tobacco) complicating childbirth; O70.0 First degree perineal laceration during delivery; O77.0 Labor and delivery complicated by meconium in amniotic fluid; Z3A.41 41 weeks gestation of pregnancy; Z67.11 Type A blood, Rh negative; Z37.0 Single live birth
CPT/HCPCS: 36415; 80307; 81005; 85025; 85027; 85461; 86592; 86850; 86900; 86901; J2405; J2590; J2790; J3490; S0119

== ENCOUNTER 2017-08-07 19:52 | Emergency (ER) | payer OTHER ==
[2017-08-07 20:04] VITALS: BP 134/88
[2017-08-07] MEDS ORDERED: TETRACAINE HCL 0.5% OPH SOLN 2 ML OD ONE (20:59)
--- NOTE | 2017-08-07 21:14 | ER Document Report ---
ED Eye Complaint - General Chief Complaint: Drainage from Eye Stated Complaint: EYE PAIN Time Seen by Provider: 08/07/17 20:58 Mode of Arrival: Ambulatory Information source: Patient Notes: 36-year-old female presents to ED for complaint of pain in her right eye. She states she has redness and drainage. She states this afternoon she started with a lot of pain she took her contact out of her eyes around 3 or 4:00. States she does not have any glasses so has not been able put any glasses on. She states she did have pinkeye a couple years ago. She states she does not know of any injury but she does has had a recent upper respiratory infection with some sinus drainage. She states that her eye has been very pink with constant tearing. There is no purulent drainage at this time. TRAVEL OUTSIDE OF THE [place] IN LAST 30 DAYS: No - HPI Onset: This afternoon Eye location: Right Injury: No Occurred at: Home Quality of pain: Burning, Pressure Severity: Moderate Pain Level: 3 Contact lenses worn: Yes Contact lenses: Soft Associated symptoms: Burning, Pain, Redness, Blurred vision, Other - Constant tearing - Related Data Allergies/Adverse Reactions: amoxicillin Allergy (Verified 01/01/17 21:47) Past Medical History - General Information source: Patient - Social History Smoking Status: Current Every Day Smoker Cigarette use (# per day): Yes - 10 cigarettes a day Chew tobacco use (# tins/day): No Smoking Education Provided: Yes - 4 minutes Frequency of alcohol use: Rare Drug Abuse: None 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 Lives with: Family Family History: Reviewed & Not Pertinent Patient has suicidal ideation: No Patient has homicidal ideation: No - Past Medical History Cardiac Medical History: Reports: Hx Hypertension Pulmonary Medical History: Reports: Hx Pneumonia EENT Medical History: Reports: None Neurological Medical History: Reports: None Endocrine Medical History: Reports: None Renal/ Medical History: Reports: None Malignancy Medical History: Reports: None GI Medical History: Reports: None Musculoskeltal Medical History: Reports Hx Musculoskeletal Deformity - scoliosis , Reports Hx Musculoskeletal Trauma, Reports Other - Scoliosis Skin Medical History: Reports None Psychiatric Medical History: Reports: Hx Depression Traumatic Medical History: Reports: Hx Fractures Infectious Medical History: Reports: None - Left ankle Past Surgical History: Reports: Hx Oral Surgery - [place] teeth, Hx Orthopedic Surgery - knee, ankle - Immunizations Hx Diphtheria, Pertussis, Tetanus Vaccination: No - Does not know Review of Systems - Review of Systems Constitutional: No symptoms reported EENT: Eye pain, Eye discharge, Blurred vision - Usually wears contacts cannot see without her contacts does not have glasses, Tearing, Nose discharge, Sinus discharge, Other - Facial pain Cardiovascular: No symptoms reported Respiratory: No symptoms reported Gastrointestinal: No symptoms reported Genitourinary: No symptoms reported Female Genitourinary: No symptoms reported Musculoskeletal: No symptoms reported Skin: No symptoms reported Hematologic/Lymphatic: No symptoms reported Neurological/Psychological: No symptoms reported -: Yes All other systems reviewed and negative Physical Exam - Vital signs Vitals: Temp Pulse Resp BP Pulse Ox 98.4 F 71 16 134/88 H 98 08/07/17 20:01 08/07/17 20:01 08/07/17 20:01 08/07/17 20:01 08/07/17 20:01 Interpretation: Normal - General General appearance: Appears well, Alert - HEENT Head: Normocephalic, Atraumatic Eyes: Normal, Tears Conjunctiva: Injected Eyelashes: Normal Pupils: PERRL Ears: Normal External canal: Normal Tympanic membrane: Normal Sinus: Tenderness Nasal: Swelling, Clear rhinorrhea Mouth/Lips: Normal Mucous membranes: Normal Pharynx: Normal Neck: Normal - Respiratory Respiratory status: No respiratory distress Chest status: Nontender Breath sounds: Normal Chest palpation: Normal - Cardiovascular Rhythm: Regular Heart sounds: Normal auscultation Murmur: No - Abdominal Inspection: Normal Distension: No distension Bowel sounds: Normal Tenderness: Nontender Organomegaly: No organomegaly - Back Back: Normal, Nontender - Extremities General upper extremity: Normal inspection, Nontender, Normal color, Normal ROM , Normal temperature General lower extremity: Normal inspection, Nontender, Normal color, Normal ROM , Normal temperature, Normal weight bearing. No: Tasha's sign - Neurological Neuro grossly intact: Yes Cognition: Normal Orientation: AAOx4 Matheson Coma Scale Eye Opening: Spontaneous Estephanie Coma Scale Verbal: Oriented Estephanie Coma Scale Motor: Obeys Commands Matheson Coma Scale Total: 15 Speech: Normal Motor strength normal: LUE, RUE, LLE, RLE Sensory: Normal - Psychological Associated symptoms: Normal affect, Normal mood - Skin Skin Temperature: Warm Skin Moisture: Dry Skin Color: Normal Course - Re-evaluation Re-evalutation: 08/08/17 00:[address] Camilo who stated that he would see the patient tomorrow morning at 8:00. He recommended Polytrim and gentamicin eyedrops 1 each and right now 1 each each time she woke up tonight 1 each before coming to the office in the morning. Patient was treated with antibiotic eyedrops and instructed to follow- up with Dr. Camilo in the morning. Patient was instructed not to replace the contact lenses until she follows with with the Dr. Camilo and hand structure to replace the contacts.. - Vital Signs Vital signs: Temp Pulse Resp BP Pulse Ox 98.4 F 71 16 134/88 H 98 08/07/17 20:01 08/07/17 20:01 08/07/17 20:01 08/07/17 20:01 08/07/17 20:01 Discharge - Discharge Clinical Impression: Corneal abrasion of right eye due to contact lens Condition: Stable Disposition: HOME, SELF-CARE Additional Instructions: Corneal Abrasion You have a corneal abrasion, a scratch on the surface of the eye. The pain of a corneal abrasion feels like a sharp particle in the eye. Usually, antibiotics are placed in the eye to prevent infection. Occasionally, medication will be placed in the eye to dilate the pupil. This is done to relieve some of your discomfort and is only temporary. Pain medication may be required. Don't drive or operate machinery until you have the use of both your eyes. The abrasion usually is healed in one or two days. A follow-up examination to confirm healing is recommended. Call the doctor or return at once if you develop severe pain, decreasing vision, eye swelling, or purulent drainage. You will be given a bottle of Polytrim eyedrops and gentamicin eyedrops tonight. Please place 1 drop of each of these medications in your eye before going to bed you will be getting 1 drop before you leave the hospital and one drop if you wake up during the night and one drop in of each in the morning before going to the action finisher's office at 8 AM. EYEDROP USE: Eyedrops are most easily applied by pulling down on the cheek just below the lower eyelid. The lower lid will pop out to form a pouch into which you can drop the medicine. A small brief sting is not unusual, especially if the eye is reddened and irritated already. Use the drops exactly as recommended. You should see the doctor at once if there is a decrease in vision, swelling of the eye, or an increase in discomfort. ANTIBIOTIC THERAPY: You have been given an antibiotic prescription. It's important that you take all the medication, unless instructed otherwise by your physician. Failure to complete the entire course can result in relapse of your condition. Common side effects of antibiotics include nausea, intestinal cramping, or diarrhea. Women may develop vaginal yeast infections, and babies can get yeast (thrush) in the mouth following the use of antibiotics. Contact your physician if you develop significant side effects from this medication. Allergy to this antibiotic can result in hives, wheezing, faintness, or itching. If symptoms of allergy occur, stop the medication and call the doctor. FOLLOW-UP CARE: If you have been referred to a physician for follow-up care, call the physician s office for an appointment as you were instructed or within the next two days. If you experience worsening or a significant change in your symptoms, notify the physician immediately or return to the Emergency Department at any time for re-evaluation. Forms: Elevated Blood Pressure, Smoking Cessation Education Referrals: JEMIMA DAVIS MD [Primary Care Provider] - Follow up as needed SHERLY CAMILO MD [ACTIVE STAFF] - Follow up tomorrow (I have spoken with this doctor tonight please follow-up in his office at 8 AM in the morning)
[2017-08-07] MEDS ORDERED: POLYMYXIN B SULFATE/TMP OPH SOLN (10 ML/ER DISP) OD PRN (22:06)
[2017-08-07] MEDS ORDERED: GENTAMICIN SULFATE 0.3% OPH SOLN (5 ML/ER DISP) OD SCH (22:15)
== END 2017-08-07 22:47 | disposition home or self-care (01) ==
LOC: ER 19:52
DX: H18.821 Corneal disorder due to contact lens, right eye (principal); F17.210 Nicotine dependence, cigarettes, uncomplicated; I10 Essential (primary) hypertension
CPT/HCPCS: 99406; 99282; J3490 ×2

== ENCOUNTER 2019-04-01 15:13 | Emergency (ER) | payer OTHER ==
[2019-04-01 15:31] VITALS: BP 149/81
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
[2019-04-01] MEDS ORDERED: IBUPROFEN 800 MG TABLET PO ONE (15:47)
== END 2019-04-01 15:49 | disposition home or self-care (01) ==
LOC: ER 15:13
DX: R51 Headache (principal); M54.2 Cervicalgia; M25.519 Pain in unspecified shoulder; H92.01 Otalgia, right ear; V49.40XA Driver injured in collision with unspecified motor vehicles in traffic accident, initial encounter; I10 Essential (primary) hypertension; Z87.891 Personal history of nicotine dependence; Z88.0 Allergy status to penicillin
CPT/HCPCS: 99283